=== PATIENT | female | born 1965 ===

== ENCOUNTER 2024-08-11 09:07 | Day surgery (SDC) | payer OTHER ==
[2024-08-11] MEDS ORDERED: FLUMAZENIL 0.5 MG/5 ML ML IV STA (13:23)
[2024-08-11] MEDS ORDERED: NALOXONE HCL 0.4 MG/ML AMPUL IV STA (13:23)
[2024-08-11] MEDS ORDERED: MIDAZOLAM HCL 2 MG/2 ML VIAL IV ONE (13:30)
[2024-08-11] MEDS ORDERED: DIPHENHYDRAMINE HCL 50 MG/ML VIAL 1ML IV ONE (13:30)
[2024-08-11] MEDS ORDERED: fentaNYL CITRATE 50 MCG/ML AMPUL IV PUSH ONE (13:30)
== END 2024-08-11 15:05 | disposition home or self-care (01) ==
LOC: AMB-ENDOS 09:07
PROVIDERS: ATTEND Colon & Rectal Surgery
DX: K63.5 Polyp of colon (principal); K62.1 Rectal polyp; K57.30 Diverticulosis of large intestine without perforation or abscess without bleeding